=== PATIENT | female | born 1985 | race Hispanic/Latino ===

== ENCOUNTER 2023-07-24 11:13 | Emergency (ER) | payer SELFPAY ==
[2023-07-24 11:59] LABS: Protime INR 1.04
[2023-07-24 12:02] LABS: Absolute Lymphocytes (CBC) 1.9 K/uL (0.7-4.9); Hematocrit 17.9 % (36.0-45.0); Lymphocytes % 35.2 % (15.3-44.8); MCV 58.5 fL (80-100); MPV 8.3 fL (7.6-11.3); Platelets 270 thou/uL (152-406); RBC Red Blood Cell Count 3.06 M/uL (3.86-4.86)
[2023-07-24 12:06] LABS: Specific Gravity 1.015 (1.005-1.030); Urine Bacteria <20 /HPF (<20); Urine Bilirubin NEGATIVE (Negative); Urine Blood 3+ (OVER) (Negative); Urine Clarity Extremely Turbid (Clear); Urine Color Light-Brown (Yellow); Urine Glucose NEGATIVE (Negative); Urine Protein TRACE (Negative); Urine RBC >50 /HPF (None Seen); Urine Urobilinogen Normal (Normal); Urine pH 5.5 (5.0-7.0)
[2023-07-24 12:28] LABS: Albumin 3.3 g/dL (3.4-5.0); Bilirubin Total 0.3 mg/dL (0.2-1.0); Potassium 3.5 mEq/L (3.5-5.1); Protein, Total 7.6 g/dL (6.4-8.2)
[2023-07-24 12:29] LABS: RBC Red Blood Cell Count 3.11 M/uL (3.86-4.86)
[2023-07-24] MEDS ORDERED: NA CHLORIDE 0.9% 250 ML ONE ×2 (13:03→17:29)
[2023-07-24 15:04] LABS: White Blood Cell Scan OK (OK)
[2023-07-24 15:05] LABS: Blood Morphology Comment NOTED (NOT SEEN); Hypochromasia 2+; Ovalocytes SLIGHT; Platelet Estimate ADEQ; Poikilocytosis 1+; Polychromasia 1+; Teardrop Cell FEW
--- NOTE | 2023-07-24 21:19 | EDPHYS ---
Physician Documentation [facility] Name: Nika Chan Age: 38 yrs Sex: Female : 1985 Arrival Date: 07/24/2023 Time: 11:13 Bed 14 Private MD: ED Physician Charan Flores HPI: 07/24 11:24 This 38 yrs old Female presents to ER via Ambulatory with complaints of jh7 Abnormal Lab Results. 11:24 Onset: The symptoms/episode began/occurred 2 week(s) ago. Associated signs and jh7 symptoms: Pertinent positives: Fatigue, Pertinent negatives: abdominal pain, chest pain, fever, headache, shortness of breath, sore throat, vomiting. Patient reports that she was sent to the ER by the [facility] due to hemoglobin of 5.3. The patient reports that she has a history of anemia, which worsened after she gave 1-1/2 years ago. She states that since then she has had heavy periods. Reports that she has had 1 transfusion in her life which occurred 10 years ago. Reports mild fatigue, but denies dizziness, chest pain, shortness of breath, or any other symptoms at this time.. 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 - Social history:: Smoking status: Patient denies any tobacco usage or history of. ROS: 11:24 Eyes: Negative for injury, pain, redness, and discharge, ENT: Negative for injury, jh7 pain, and discharge, Neck: Negative for injury, pain, and swelling, Cardiovascular: Negative for chest pain, palpitations, and edema, Respiratory: Negative for shortness of breath, cough, wheezing, and pleuritic chest pain, Abdomen/GI: Negative for abdominal pain, nausea, vomiting, diarrhea, and constipation, MS/Extremity: Negative for injury and deformity, Skin: Negative for injury, rash, and discoloration, Neuro: Negative for headache, weakness, numbness, tingling, and seizure, 11:24 Constitutional: Positive for fatigue, Negative for fever, 11:24 All other systems are negative, Exam: 11:24 Constitutional: This is a well developed, well nourished patient who is awake, alert, jh7 and in no acute distress. Head/Face: Normocephalic, atraumatic. Eyes: Pupils equal round and reactive to light, extra-ocular motions intact. Lids and lashes normal. Conjunctiva and sclera are non-icteric and not injected. Cornea within normal limits. Periorbital areas with no swelling, redness, or edema. Neck: Trachea midline, no thyromegaly or masses palpated, and no cervical lymphadenopathy. Supple, full range of motion without nuchal rigidity, or vertebral point tenderness. No Meningismus. Cardiovascular: Regular rate and rhythm with a normal S1 and S2. No gallops, murmurs, or rubs. Normal PMI, no JVD. No pulse deficits. Respiratory: Lungs have equal breath sounds bilaterally, clear to auscultation and percussion. No rales, rhonchi or wheezes noted. No increased work of breathing, no retractions or nasal flaring. Abdomen/GI: Soft, non-tender, with normal bowel sounds. No distension or tympany. No guarding or rebound. No evidence of tenderness throughout. Back: No spinal tenderness. No costovertebral tenderness. Full range of motion. MS/ Extremity: Pulses equal, no cyanosis. Neurovascular intact. Full, normal range of motion. Neuro: Awake and alert, GCS 15, oriented to person, place, time, and situation. Normal gait. 11:24 Skin: Appearance: Color: pale, Temperature: normal temperature, warm, Vital Signs: 11:24 BP 121 / 63; Pulse 73; Resp 17; Temp 97.6; Pulse Ox 100% ; Weight 83.91 kg; Pain 0/10; ll1 14:48 BP 106 / 60; Pulse 72; Resp 17; Temp 97.4(TE); Pulse Ox 99% on R/A; rs5 14:55 BP 105 / 62; Pulse 74; Resp 16; Temp 97.4(TE); Pulse Ox 100% ; rs5 15:00 BP 112 / 63; Pulse 77; Resp 17; Temp 97.6(TE); Pulse Ox 99% ; rs5 15:05 BP 107 / 62; Pulse 81; Resp 17; Temp 97.5(TE); Pulse Ox 99% ; rs5 15:20 BP 109 / 61; Pulse 77; Resp 16; Temp 97.7(TE); Pulse Ox 99% ; rs5 16:45 BP 108 / 79; Pulse 80; Resp 16; Temp 97.6(TE); Pulse Ox 99% ; rs5 17:19 BP 113 / 77; Pulse 83; Resp 17; Temp 97.4(TE); Pulse Ox 99% on R/A; rs5 17:25 BP 115 / 74; Pulse 85; Resp 18; Temp 97.5(TE); Pulse Ox 99% on R/A; rs5 17:30 BP 104 / 65; Pulse 80; Resp 17; Temp 97.6(TE); Pulse Ox 100% on R/A; rs5 17:35 BP 106 / 65; Pulse 75; Resp 16; Temp 97.7(TE); Pulse Ox 99% on R/A; rs5 21:58 BP 106 / 60; Pulse 81; Resp 18; Temp 98; rv 11:24 Pain Scale: Adult ll1 [place] Coma Score: 21:58 Eye Response: spontaneous(4). Motor Response: obeys commands(6). Verbal Response: la4 oriented(5). Total: 15. MDM: 11:31 Patient medically screened. [facility] 11:36 ED course: Reviewed lab results. We will transfuse the patient 2 units of PRBCs and jh7 discharged to follow-up with her PCP.. 18:42 Differential diagnosis: Iron deficiency anemia, anemia due to chronic blood loss. Data [facility] reviewed: vital signs, nurses notes, lab test result(s). I considered the following discharge prescriptions or medication management in the emergency department Medications were administered in the Emergency Department. See MAR. Counseling: I had a detailed discussion with the patient and/or guardian regarding the historical points, exam findings, and any diagnostic results supporting the discharge/admit diagnosis, the need for outpatient follow up, for definitive care, At the [facility]. Response to treatment: the patient's symptoms have markedly improved after treatment. 07/24 11:32 Order name: CBC with Diff; Complete Time: 16:25 [facility] 07/24 11:32 Order name: CMP; Complete Time: 12:35 [facility] 07/24 11:32 Order name: Lipase; Complete Time: 12:35 [facility] 07/24 11:32 Order name: Urinalysis w/ reflexes; Complete Time: 12:08 [facility] 07/24 11:32 Order name: PT-INR; Complete Time: 12:08 [facility] 07/24 11:32 Order name: Type And Screen [facility] 07/24 11:36 Order name: LDH; Complete Time: 12:35 [facility] 07/24 11:36 Order name: Retic Count; Complete Time: 12:35 [facility] 07/24 12:09 Order name: Urine Culture [facility] 07/24 12:56 Order name: Packed RBC Leukored [facility] 07/24 13:11 Order name: ABO/RH no charge; Complete Time: 16:25 [facility] 07/24 15:06 Order name: CBC Smear Scan; Complete Time: 16:25 [facility] 07/24 11:32 Order name: IV Saline Lock; Complete Time: 11:44 [facility] 07/24 11:32 Order name: Labs collected and sent; Complete Time: 11:44 [facility] 07/24 12:00 Order name: Labs - recollect needed: please recollect Type and Screen and reband Pt; em1 Complete Time: 12:17 Administered Medications: 11:51 Not Given (Physician Discretion): ns 0.9% 1000 ml IV at 1 bolus Per protocol; 1000 mL [facility] bolus Disposition: 21:58 Co-signature as Attending Physician, Charan Flores MD I reviewed the patient's care rt provided by the Advanced Practice Provider and agree with the diagnosis and treatment plan. Disposition Summary: 07/24/23 21:18 Discharge Ordered Notes: Location: Home snw Problem: new snw Symptoms: have improved snw Condition: Stable snw Diagnosis - Anemia, unspecified snw Followup: [facility] - With: Private Physician - When: 2 - 3 days - Reason: Recheck today's complaints Discharge Instructions: - Discharge Summary Sheet [facility] - Anemia [facility] - Blood Transfusion, Adult [facility] Forms: - Medication Reconciliation Form snw - Thank You Letter snw - Antibiotic Education snw - Prescription Opioid Use snw - Patient Portal Instructions snw - Leadership Thank You Letter snw Signatures: Dispatcher [employer] EDMaxine Stweart FNP-C FIELD PIPELINES SUPERVISOR-Chandler Le em1 Letty Green RN RN 1 Jody Richards FNP FIELD PIPELINES SUPERVISOR [facility] Charan Flores MD MD rt Corrections: (The following items were deleted from the chart) 11:24 PSHx: None; ll1 ll1 11:54 11:33 Abdomen Pelvis W Con+CT.RAD.BRZ ordered. EDMS EDMS 13:06 12:44 BB Add On+BB.LAB.BRZ ordered. EDMS EDMS
--- NOTE | 2023-07-24 21:19 | ER ---
Nurse's Notes [facility] Name: Nika Chan Age: 38 yrs Sex: Female : 1985 Arrival Date: 07/24/2023 Time: 11:13 Bed 14 Private MD: Diagnosis: Anemia, unspecified Presentation: 07/24 11:24 Chief complaint: Patient states: Weak, jaundiced, fatigue for 2 weeks. Had blood drawn ll1 HGB 5.4, told to come to ED. Coronavirus screen: Client denies travel out of the [place] in the last 14 days. At this time, the client does not indicate any symptoms associated with coronavirus-19. Ebola Screen: Patient denies travel to an Ebola-affected area in the 21 days before illness onset. Initial Sepsis Screen: Does the patient meet any 2 criteria? No. Patient's initial sepsis screen is negative. Does the patient have a suspected source of infection? No. Patient's initial sepsis screen is negative. Risk Assessment: Do you want to hurt yourself or someone else? Patient reports no desire to harm self or others. Onset of symptoms was July 10, 2023. 11:24 Method Of Arrival: Ambulatory ll1 11:24 Acuity: ADITYA 2 ll1 Triage Assessment: 11:24 General: Appears uncomfortable, ill, Behavior is calm, cooperative, appropriate for ll1 age, Reports fatigue for. Pain: Denies pain. Neuro: Reports weakness. Derm: skin yellow in color. 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 - Social history:: Smoking status: Patient denies any tobacco usage or history of. Screenin:20 [facility] ED Fall Risk Assessment (Adult) History of falling in the last 3 months, rs5 including since admission No falls in past 3 months (0 pts) Confusion or Disorientation No (0 pts) Intoxicated or Sedated No (0 pts) Impaired Gait No (0 pts) Mobility Assist Device Used No (0 pt) Altered Elimination No (0 pt) Score/Fall Risk Level 0 - 2 = Low Risk Oriented to surroundings, Maintained a safe environment. Abuse screen: Denies threats or abuse. Nutritional screening: No deficits noted. Tuberculosis screening: No symptoms or risk factors identified. Assessment: 11:20 General: Appears in no apparent distress. comfortable, Behavior is calm, cooperative. rs5 Pain: Denies pain. Neuro: 11:20 Neuro: Level of Consciousness is awake, alert, obeys commands, Oriented to person, rs5 place, time, situation. Cardiovascular: Heart tones S1 S2 present Rhythm is regular. Respiratory: Airway is patent Respiratory effort is even, unlabored, Respiratory pattern is regular, symmetrical, Breath sounds are clear bilaterally. GI: Abdomen is round non-distended, Bowel sounds present X 4 quads. Abd is soft and non tender X 4 quads. Patient currently denies nausea, vomiting. : No signs and/or symptoms were reported regarding the genitourinary system. EENT: No signs and/or symptoms were reported regarding the EENT system. Derm: Skin is intact, Skin is dry, Skin is normal, Skin temperature is warm. Musculoskeletal: Range of motion: intact in all extremities, Pt reports generalized weakness started 2 months ago. 12:25 Reassessment: Patient and/or family updated on plan of care and expected duration. Pain rs5 level reassessed. Patient is alert, oriented x 3, equal unlabored respirations, skin warm/dry/pink. 13:15 Reassessment: To bedside, blood transfusion consent form signed by patient. rs5 15:05 Reassessment: To bedside for blood transfusion. Blood transfusion rate stareted at 50 rs5 ml/hr for first 15 min of transfusion, no adverse reaction noted. Normal sinus rhythm noted on monitor, respirations even, unlabored. Rate of infusion increased to 250ml/hr. 16:45 Reassessment: Blood transfusion complete. No adverse reaction noted, see more rs5 transfusion record for more information . 16:45 Cardiovascular: Rhythm is regular. Respiratory: Respiratory effort is even, unlabored, rs5 Respiratory pattern is regular, symmetrical. 17:38 Reassessment: To bedside for blood transfusion. Remained with pt for first 15 min of rs5 transfusion, rate started at 50 ml/hr, no adverse reaction noted. Transfusion rate increased to 250 ml/hr after first fifteen minutes. See transfusion record for more information. 17:49 Cardiovascular: Rhythm is regular. Respiratory: Airway is patent Respiratory effort is rs5 even, unlabored, Respiratory pattern is regular, symmetrical. Vital Signs: 11:24 BP 121 / 63; Pulse 73; Resp 17; Temp 97.6; Pulse Ox 100% ; Weight 83.91 kg; Pain 0/10; ll1 14:48 BP 106 / 60; Pulse 72; Resp 17; Temp 97.4(TE); Pulse Ox 99% on R/A; rs5 14:55 BP 105 / 62; Pulse 74; Resp 16; Temp 97.4(TE); Pulse Ox 100% ; rs5 15:00 BP 112 / 63; Pulse 77; Resp 17; Temp 97.6(TE); Pulse Ox 99% ; rs5 15:05 BP 107 / 62; Pulse 81; Resp 17; Temp 97.5(TE); Pulse Ox 99% ; rs5 15:20 BP 109 / 61; Pulse 77; Resp 16; Temp 97.7(TE); Pulse Ox 99% ; rs5 16:45 BP 108 / 79; Pulse 80; Resp 16; Temp 97.6(TE); Pulse Ox 99% ; rs5 17:19 BP 113 / 77; Pulse 83; Resp 17; Temp 97.4(TE); Pulse Ox 99% on R/A; rs5 17:25 BP 115 / 74; Pulse 85; Resp 18; Temp 97.5(TE); Pulse Ox 99% on R/A; rs5 17:30 BP 104 / 65; Pulse 80; Resp 17; Temp 97.6(TE); Pulse Ox 100% on R/A; rs5 17:35 BP 106 / 65; Pulse 75; Resp 16; Temp 97.7(TE); Pulse Ox 99% on R/A; rs5 21:58 BP 106 / 60; Pulse 81; Resp 18; Temp 98; rv 11:24 Pain Scale: Adult ll1 [place] Coma Score: 21:58 Eye Response: spontaneous(4). Motor Response: obeys commands(6). Verbal Response: la4 oriented(5). Total: 15. ED Course: 11:17 Patient arrived in ED. mg5 11:20 Patient has correct armband on for positive identification. Placed in gown. Bed in low rs5 position. Call light in reach. Side rails up X2. 11:24 Arm band placed on. ll1 11:25 Triage completed. ll1 11:31 Jody Richards FNP is [facility]. jh7 11:31 Charan Flores MD is Attending Physician. jh7 11:43 [facility]. jh7 11:43 Charan Flores MD is Attending Physician. jh7 11:44 Retic Count Sent. bc6 11:44 LDH Sent. bc6 11:44 Type And Screen Sent. bc6 11:44 PT-INR Sent. bc6 11:44 CBC with Diff Sent. bc6 11:44 CMP Sent. bc6 11:44 Lipase Sent. bc6 11:45 Inserted saline lock: 20 gauge in left antecubital area, using aseptic technique. Blood bc6 collected. 11:46 Patient placed in an exam room, on a stretcher. ll1 11:50 Yovani Webb, RN is Primary Nurse. rs5 11:50 Urinalysis w/ reflexes Sent. bc6 21:58 No provider procedures requiring assistance completed. IV discontinued, bleeding la4 controlled, No redness/swelling at site. Pressure dressing applied. 22:09 Provided Education on: Blood Transfusion. la4 Administered Medications: 11:51 Not Given (Physician Discretion): ns 0.9% 1000 ml IV at 1 bolus Per protocol; 1000 mL [facility] bolus Medication: 22:12 VIS not applicable for this client. la4 Outcome: 21:18 Discharge ordered by . snw 21:56 Patient left the ED. la4 21:59 Discharged to home ambulatory, la4 21:59 Condition: good 21:59 Discharge instructions given to patient, family, Instructed on discharge instructions, follow up and referral plans. Demonstrated understanding of follow-up care, Signatures: Maxine Agee FNP-C RESOURCE MANAGER-[employer] Mahad Solorzano, RN Letty Clark RN RN 1 Jody Richards FNP [place] [id number] Yovani Webb, RN RN rs5 Keysha Hernandez 6 Luisana Oswald 5 Carolyne Abraham RN RN la4 Corrections: (The following items were deleted from the chart) 11:24 11:24 PSHx: None; ll1 ll1 11:46 11:24 Arm band placed on Patient placed in an exam room, on a stretcher, ll1 ll1 13:06 13:05 BB Add On+BB.LAB.BRZ drawn and sent. rs5 EDMS 16:52 15:05 Reassessment: To bedside for blood transfusion, at bedside for first 15 min of rs5 transfusion, no adverse reaction noted. Normal sinus rhythm noted on monitor, respirations even, unlabored. rs5 07/25 00:58 07/24 21:58 BP 106 / 6; Pulse 81bpm; Resp 18bpm; Temp 98F; la4 rv
[2023-07-24 22:33] VITALS: BP 106/65; TEMP 97.7; O2SAT 99
== END 2023-07-24 21:56 | disposition home or self-care (01) ==
LOC: ER 11:13
PROC: 30233N1 Transfusion of Nonautologous Red Blood Cells into Peripheral Vein, Percutaneous Approach (ICD-10-PCS; principal; 2023-07-24)
DX: D64.9 Anemia, unspecified (principal)
CPT/HCPCS: 36415; 80053; 81001; 83615; 83690; 85025; 85044; 85610; 86850; 86900; 86901; 86920; 87086; 87088; 99284; J7050; P9016